=== PATIENT | female | born 1965 | race Caucasian/White ===

== ENCOUNTER 2017-07-03 14:47 | Inpatient (IN) ==
[2017-07-03 16:12] LABS: Basophils # 0.1 10*3/uL (0.0-0.2); Basophils % 1.3 % (0.0-0.8); Hematocrit 29.6 VOL% (35.7-47.0); Hemoglobin 8.3 GM/DL (12.0-16.0); Immature Granulocytes % 0.5 %; Immature Granulocytes Absolute 0.03 #; Lymphocytes % 16.4 % (21.3-54.2); Mean Corpuscular Hemoglobin 28 PG (27-34); Mean Platelet Volume 11.2 FL (9.6-12.0); Monocytes # 0.6 10*3/uL (0.11-0.8); Monocytes % 8.9 % (1.7-12.7); Neutrophils # 4.6 10*3/uL (1.4-7.4); Neutrophils % 72.9 % (38.7-73.9); Platelet Count 194 T/CUMM (130-400); Red Blood Count 3.02 MC/CUMM (3.8-5.5); Red Cell Distribution Width 20.1 % (9.3-17.3); White Blood Count 6.3 T/CUMM (4-12)
[2017-07-03 16:38] LABS: Alanine Aminotransferase 28 U/L (13-56); Albumin 3.4 G/DL (3.4-5.0); Alkaline Phosphatase 82 U/L (45-117); Aspartate Amino Transferase 28 U/L (0-37); Blood Urea Nitrogen 32 MG/DL (7-18); Calcium 8.3 MG/DL (8.5-10.1); Glucose 131 MG/DL (74-106); Osmolality,Calculated 289.3 MOS/KG (273-304); Potassium 4.8 MMOL/L (3.5-5.1); Sodium 141 MMOL/L (136-145); Total Protein 6.5 G/DL (6.4-8.3); Troponin I Only < 0.015 NG/ML (0.00-0.045)
[2017-07-03 17:32] LABS: Partial Thromboplastin Time 37.6 SECS (0-40)
[2017-07-03 17:37] LABS: INR 2.9
[2017-07-03 17:41] LABS: PT Patient Result 29.4 SECS
[2017-07-03] MEDS ORDERED: GLUCAGON 1 MG VIAL IM PRN (18:13)
[2017-07-03] MEDS ORDERED: MAGNESIUM SULF RIDER 4 GM in PREMIX 1 EACH IV PRN ×2 (18:13→19:39)
[2017-07-03] MEDS ORDERED: DEXTROSE 50% 25 GM/50 ML VIAL IV PRN (18:13)
[2017-07-03] MEDS ORDERED: POTASSIUM CHLORIDE 20 MEQ TABLET PO PRN ×2 (18:13→19:39)
[2017-07-03] MEDS ORDERED: MAGNESIUM SULF RIDER 2 GM in PREMIX 1 EACH IV PRN ×2 (18:13→19:39)
[2017-07-03] MEDS ORDERED: CARVEDILOL 3.125 MG TABLET PO STA (18:18)
[2017-07-03] MEDS ORDERED: LISINOPRIL 10 MG TABLET PO STA (18:19)
[2017-07-03] MEDS ORDERED: LISINOPRIL 10 MG TABLET ONE (18:20)
[2017-07-03] MEDS ORDERED: CARVEDILOL 3.125 MG TABLET ONE (18:24)
[2017-07-03 20:17] LABS: Basophils # 0.1 10*3/uL (0.0-0.2); Basophils % 1.2 % (0.0-0.8); Hematocrit 28.3 VOL% (35.7-47.0); Immature Granulocytes % 0.3 %; Immature Granulocytes Absolute 0.02 #; Lymphocytes # 1.2 10*3/uL (1.4-4.0); Lymphocytes % 21.4 % (21.3-54.2); Mean Corpuscular HGB Conc 28.3 GM/DL (32-36); Mean Corpuscular Hemoglobin 28 PG (27-34); Mean Corpuscular Volume 98.6 FL (87-102); Mean Platelet Volume 11.4 FL (9.6-12.0); Monocytes # 0.4 10*3/uL (0.11-0.8); Monocytes % 7.1 % (1.7-12.7); Platelet Count 188 T/CUMM (130-400); Red Blood Count 2.87 MC/CUMM (3.8-5.5); Red Cell Distribution Width 20.2 % (9.3-17.3); White Blood Count 5.8 T/CUMM (4-12)
[2017-07-03 20:25] LABS: Folate > 24.0 NG/ML (5.4-24.0); Vitamin B12 754 PG/ML (211-911)
[2017-07-03 21:22] LABS: Sedimentation Rate-Westergren 65 MM/HR (0-20)
[2017-07-03] MEDS: acetaZOLAMIDE 250 MG TABLET PO SCH (22:06)
[2017-07-03] MEDS: SUCRALFATE 1 GM TABLET PO SCH (22:06)
[2017-07-03] MEDS: CARVEDILOL 12.5 MG TABLET PO SCH (22:06)
[2017-07-03] MEDS: MULTIVITAMIN (INTRINSIC) CAPSULE PO SCH (22:06)
[2017-07-03] MEDS: glipiZIDE 10 MG TABLET PO SCH (22:06)
[2017-07-03] MEDS: INSULIN REGULAR 100 UNIT/ML SUBCUT SCH (22:09)
[2017-07-03 22:21] LABS: Anisocytosis 2+; Hypochromasia 2+; Macrocytosis 1+; Microcytosis 1+; Ovalocytes 1+; Platelet Estimate Normal; Polychromasia Few
[2017-07-03 22:22] LABS: Stomatocytes Few
[2017-07-03] MEDS ORDERED: FUROSEMIDE 40 MG/4 ML VIAL IV ONE ×2 (23:00)
[2017-07-04] MEDS ORDERED: NITROGLYCERIN 2% OINT 1 INCH/GM PACK TOP SCH
[2017-07-04] MEDS: NITROGLYCERIN 2% OINT 1 INCH/GM PACK TOP SCH ×4 (00:30→17:20)
[2017-07-04] MEDS ORDERED: CARVEDILOL 3.125 MG TABLET PO SCH ×2 (08:00)
[2017-07-04] MEDS ORDERED: FUROSEMIDE 40 MG/4 ML VIAL IV SCH (08:00)
[2017-07-04] MEDS ORDERED: LISINOPRIL 5 MG TABLET PO SCH (09:00)
[2017-07-04] MEDS ORDERED: AMIODARONE INJ 150 MG in DEXTROSE 5% 100 ML IV ONE (09:30)
[2017-07-04] MEDS ORDERED: AMIODARONE INJ 450 MG in DEXTROSE 5% 241 ML IV SCH (10:00)
[2017-07-04] MEDS: FUROSEMIDE 40 MG/4 ML VIAL IV SCH ×2 (10:13→17:03)
[2017-07-04] MEDS: INSULIN REGULAR 100 UNIT/ML SUBCUT SCH ×4 (10:20→20:39)
[2017-07-04] MEDS: ONDANSETRON 4 MG/2 ML VIAL IV PRN (11:01)
[2017-07-04] MEDS: ACETAMINOPHEN 325 MG TABLET PO PRN (11:03)
[2017-07-04] MEDS: glipiZIDE 10 MG TABLET PO SCH ×4 (12:36→20:39)
[2017-07-04] MEDS: acetaZOLAMIDE 250 MG TABLET PO SCH ×2 (12:36→20:39)
[2017-07-04] MEDS: DULoxetine 30 MG CAPSULE PO SCH (12:36)
[2017-07-04] MEDS: CARVEDILOL 12.5 MG TABLET PO SCH ×2 (12:37→17:11)
[2017-07-04] MEDS: INSULIN GLARGINE 100 UNIT/ML SUBCUT SCH (12:37)
[2017-07-04] MEDS: SUCRALFATE 1 GM TABLET PO SCH ×4 (12:37→20:39)
[2017-07-04] MEDS: LISINOPRIL 5 MG TABLET PO SCH (12:37)
[2017-07-04] MEDS: PANTOPRAZOLE 40 MG TABLET PO SCH (12:37)
[2017-07-04] MEDS: MULTIVITAMIN (INTRINSIC) CAPSULE PO SCH ×2 (12:37→20:39)
[2017-07-04] MEDS: LISINOPRIL 20 MG TABLET PO SCH (12:37)
[2017-07-04] MEDS: ATORVASTATIN 40 MG TABLET PO SCH (12:38)
[2017-07-04] MEDS ORDERED: MEPERIDINE 50 MG/1 ML VIAL IV ONE (13:59)
[2017-07-04] MEDS ORDERED: MIDAZOLAM 10 MG/2 ML VIAL IV ONE (13:59)
[2017-07-04] MEDS ORDERED: MIDAZOLAM 10 MG/2 ML VIAL ONE (14:04)
[2017-07-04] MEDS ORDERED: NALOXONE 0.4 MG/ML VIAL ONE (14:04)
[2017-07-04] MEDS ORDERED: FLUMAZENIL 0.5 MG/5 ML VIAL IV ONE (14:05)
[2017-07-04] MEDS: AMIODARONE INJ 450 MG in DEXTROSE 5% 241 ML IV SCH (17:07)
[2017-07-04] MEDS: AMIODARONE 200 MG TABLET PO SCH ×2 (17:11→20:39)
[2017-07-04] MEDS: WARFARIN 5 MG TABLET PO SCH (17:11)
[2017-07-05] MEDS: NITROGLYCERIN 2% OINT 1 INCH/GM PACK TOP SCH ×5 (00:19→23:39)
[2017-07-05] MEDS: ONDANSETRON 4 MG/2 ML VIAL IV PRN ×3 (00:20→09:59)
[2017-07-05] MEDS ORDERED: AMIODARONE INJ 450 MG in DEXTROSE 5% 241 ML IV SCH (03:00)
[2017-07-05 05:54] LABS: Basophils # 0.1 10*3/uL (0.0-0.2); Basophils % 1.1 % (0.0-0.8); Hematocrit 28.4 VOL% (35.7-47.0); Hemoglobin 8.3 GM/DL (12.0-16.0); Immature Granulocytes % 0.6 %; Immature Granulocytes Absolute 0.04 #; Lymphocytes # 0.8 10*3/uL (1.4-4.0); Lymphocytes % 11.9 % (21.3-54.2); Mean Corpuscular HGB Conc 29.2 GM/DL (32-36); Mean Corpuscular Hemoglobin 28 PG (27-34); Mean Corpuscular Volume 94.4 FL (87-102); Mean Platelet Volume 10.6 FL (9.6-12.0); Monocytes # 0.6 10*3/uL (0.11-0.8); Monocytes % 8.8 % (1.7-12.7); Neutrophils # 4.9 10*3/uL (1.4-7.4); Neutrophils % 77.6 % (38.7-73.9); Platelet Count 174 T/CUMM (130-400); Red Blood Count 3.01 MC/CUMM (3.8-5.5); White Blood Count 6.4 T/CUMM (4-12)
[2017-07-05 06:30] LABS: Calcium 8.4 MG/DL (8.5-10.1); Osmolality,Calculated 295.4 MOS/KG (273-304); Potassium 4.2 MMOL/L (3.5-5.1)
[2017-07-05 08:10] LABS: Hemoglobin A1 (Alkaline) 97.9 % (96.5-98.5); Hemoglobin A2 (Alkaline) 2.1 % (1.5-3.5)
[2017-07-05] MEDS: FUROSEMIDE 40 MG/4 ML VIAL IV SCH ×2 (09:58→18:17)
[2017-07-05] MEDS: INSULIN REGULAR 100 UNIT/ML SUBCUT SCH ×5 (15:11→21:32)
[2017-07-05] MEDS: PROMETHAZINE 25 MG/1 ML VIAL IM PRN ×2 (15:16→21:32)
[2017-07-05] MEDS: AMIODARONE INJ 450 MG in DEXTROSE 5% 241 ML IV SCH ×2 (15:25→23:13)
[2017-07-05] MEDS: MULTIVITAMIN (INTRINSIC) CAPSULE PO SCH ×2 (15:25→21:33)
[2017-07-05] MEDS: LISINOPRIL 20 MG TABLET PO SCH (15:26)
[2017-07-05] MEDS: LISINOPRIL 5 MG TABLET PO SCH (15:26)
[2017-07-05] MEDS: ATORVASTATIN 40 MG TABLET PO SCH (15:26)
[2017-07-05] MEDS: PANTOPRAZOLE 40 MG TABLET PO SCH (15:26)
[2017-07-05] MEDS: INSULIN GLARGINE 100 UNIT/ML SUBCUT SCH (15:26)
[2017-07-05] MEDS: DULoxetine 30 MG CAPSULE PO SCH (15:27)
[2017-07-05] MEDS: acetaZOLAMIDE 250 MG TABLET PO SCH ×2 (15:27→21:33)
[2017-07-05] MEDS: glipiZIDE 10 MG TABLET PO SCH ×3 (15:27→21:33)
[2017-07-05] MEDS: AMIODARONE 200 MG TABLET PO SCH ×2 (15:27→21:33)
[2017-07-05] MEDS: CARVEDILOL 12.5 MG TABLET PO SCH ×2 (15:28→17:52)
[2017-07-05] MEDS: SUCRALFATE 1 GM TABLET PO SCH ×3 (15:28→21:34)
[2017-07-05] MEDS: WARFARIN 5 MG TABLET PO SCH (17:52)
[2017-07-05] MEDS: ACETAMINOPHEN 325 MG TABLET PO PRN (23:38)
[2017-07-06 02:48] LABS: Basophils # 0.1 10*3/uL (0.0-0.2); Basophils % 1.4 % (0.0-0.8); Hematocrit 29.2 VOL% (35.7-47.0); Hemoglobin 8.5 GM/DL (12.0-16.0); Immature Granulocytes % 0.6 %; Immature Granulocytes Absolute 0.05 #; Lymphocytes # 1.4 10*3/uL (1.4-4.0); Lymphocytes % 17.6 % (21.3-54.2); Mean Corpuscular HGB Conc 29.1 GM/DL (32-36); Mean Corpuscular Hemoglobin 27 PG (27-34); Mean Corpuscular Volume 94.2 FL (87-102); Mean Platelet Volume 11.5 FL (9.6-12.0); Monocytes # 0.9 10*3/uL (0.11-0.8); NRBC # 0.02 10*3/uL; Neutrophils # 5.6 10*3/uL (1.4-7.4); Neutrophils % 69.4 % (38.7-73.9); Platelet Count 183 T/CUMM (130-400); Red Cell Distribution Width 19.7 % (9.3-17.3); White Blood Count 8.1 T/CUMM (4-12)
[2017-07-06 03:01] LABS: INR 2.4
[2017-07-06 03:04] LABS: Calcium 8.8 MG/DL (8.5-10.1); Osmolality,Calculated 287.4 MOS/KG (273-304); PT Patient Result 24.6 SECS; Potassium 3.8 MMOL/L (3.5-5.1)
[2017-07-06] MEDS: NITROGLYCERIN 2% OINT 1 INCH/GM PACK TOP SCH ×3 (05:57→23:48)
[2017-07-06] MEDS: LISINOPRIL 20 MG TABLET PO SCH (09:04)
[2017-07-06] MEDS: acetaZOLAMIDE 250 MG TABLET PO SCH ×2 (09:04→20:27)
[2017-07-06] MEDS: CARVEDILOL 12.5 MG TABLET PO SCH ×2 (09:05→18:10)
[2017-07-06] MEDS: SUCRALFATE 1 GM TABLET PO SCH ×4 (09:05→20:27)
[2017-07-06] MEDS: ATORVASTATIN 40 MG TABLET PO SCH (09:05)
[2017-07-06] MEDS: INSULIN REGULAR 100 UNIT/ML SUBCUT SCH ×4 (09:05→20:26)
[2017-07-06] MEDS: DULoxetine 30 MG CAPSULE PO SCH (09:05)
[2017-07-06] MEDS: INSULIN GLARGINE 100 UNIT/ML SUBCUT SCH (09:05)
[2017-07-06] MEDS: AMIODARONE 200 MG TABLET PO SCH ×3 (09:05→20:26)
[2017-07-06] MEDS: MULTIVITAMIN (INTRINSIC) CAPSULE PO SCH ×2 (09:05→20:27)
[2017-07-06] MEDS: glipiZIDE 10 MG TABLET PO SCH ×4 (09:05→20:26)
[2017-07-06] MEDS: PANTOPRAZOLE 40 MG TABLET PO SCH (09:05)
[2017-07-06] MEDS: FUROSEMIDE 40 MG/4 ML VIAL IV SCH ×2 (09:06→15:24)
[2017-07-06] MEDS: LISINOPRIL 5 MG TABLET PO SCH (09:08)
[2017-07-06] MEDS: ACETAMINOPHEN 325 MG TABLET PO PRN ×2 (09:15→20:33)
[2017-07-06] MEDS: AMIODARONE INJ 450 MG in DEXTROSE 5% 241 ML IV SCH (13:05)
[2017-07-06] MEDS ORDERED: MAGNESIUM HYDROXIDE SUSP 30 ML UDCUP PO PRN (13:48)
[2017-07-06] MEDS: WARFARIN 5 MG TABLET PO SCH (18:05)
[2017-07-07] MEDS: AMIODARONE INJ 450 MG in DEXTROSE 5% 241 ML IV SCH (04:02)
[2017-07-07 04:38] LABS: Basophils # 0.1 10*3/uL (0.0-0.2); Basophils % 1.3 % (0.0-0.8); Hematocrit 29.1 VOL% (35.7-47.0); Hemoglobin 8.7 GM/DL (12.0-16.0); Immature Granulocytes % 0.5 %; Immature Granulocytes Absolute 0.03 #; Lymphocytes # 1.5 10*3/uL (1.4-4.0); Lymphocytes % 24.7 % (21.3-54.2); Mean Corpuscular HGB Conc 29.9 GM/DL (32-36); Mean Corpuscular Hemoglobin 28 PG (27-34); Mean Corpuscular Volume 93.9 FL (87-102); Mean Platelet Volume 11.5 FL (9.6-12.0); Monocytes # 0.6 10*3/uL (0.11-0.8); Monocytes % 10.7 % (1.7-12.7); Neutrophils # 3.7 10*3/uL (1.4-7.4); Neutrophils % 62.8 % (38.7-73.9); Platelet Count 185 T/CUMM (130-400); Red Cell Distribution Width 19.8 % (9.3-17.3)
[2017-07-07 04:55] LABS: PT Patient Result 20.7 SECS
[2017-07-07 05:06] LABS: Calcium 8.8 MG/DL (8.5-10.1); Osmolality,Calculated 286.1 MOS/KG (273-304); Potassium 3.4 MMOL/L (3.5-5.1)
[2017-07-07] MEDS: NITROGLYCERIN 2% OINT 1 INCH/GM PACK TOP SCH ×4 (05:13→23:24)
[2017-07-07] MEDS: INSULIN REGULAR 100 UNIT/ML SUBCUT SCH ×4 (09:05→21:22)
[2017-07-07] MEDS: INSULIN GLARGINE 100 UNIT/ML SUBCUT SCH (09:05)
[2017-07-07] MEDS: FUROSEMIDE 40 MG/4 ML VIAL IV SCH ×2 (09:05→15:18)
[2017-07-07] MEDS: LISINOPRIL 20 MG TABLET PO SCH (09:05)
[2017-07-07] MEDS: AMIODARONE 200 MG TABLET PO SCH ×2 (09:06→21:22)
[2017-07-07] MEDS: glipiZIDE 10 MG TABLET PO SCH ×4 (09:06→21:22)
[2017-07-07] MEDS: ATORVASTATIN 40 MG TABLET PO SCH (09:06)
[2017-07-07] MEDS: acetaZOLAMIDE 250 MG TABLET PO SCH ×2 (09:06→21:22)
[2017-07-07] MEDS: CARVEDILOL 12.5 MG TABLET PO SCH ×2 (09:06→17:15)
[2017-07-07] MEDS: SUCRALFATE 1 GM TABLET PO SCH ×4 (09:06→21:22)
[2017-07-07] MEDS: PANTOPRAZOLE 40 MG TABLET PO SCH (09:06)
[2017-07-07] MEDS: MULTIVITAMIN (INTRINSIC) CAPSULE PO SCH ×2 (09:06→21:22)
[2017-07-07] MEDS: DULoxetine 30 MG CAPSULE PO SCH (09:06)
[2017-07-07] MEDS: LISINOPRIL 5 MG TABLET PO SCH (09:08)
[2017-07-07] MEDS: WARFARIN 5 MG TABLET PO SCH (17:15)
[2017-07-07] MEDS: ACETAMINOPHEN 325 MG TABLET PO PRN (21:26)
[2017-07-08] MEDS: ONDANSETRON 4 MG/2 ML VIAL IV PRN (04:20)
[2017-07-08 04:51] LABS: INR 1.9; PT Patient Result 19.3 SECS
[2017-07-08] MEDS: INSULIN REGULAR 100 UNIT/ML SUBCUT SCH ×2 (10:02→12:05)
[2017-07-08] MEDS: INSULIN GLARGINE 100 UNIT/ML SUBCUT SCH (10:03)
[2017-07-08] MEDS: LISINOPRIL 20 MG TABLET PO SCH (10:05)
[2017-07-08] MEDS: acetaZOLAMIDE 250 MG TABLET PO SCH (10:06)
[2017-07-08] MEDS: MULTIVITAMIN (INTRINSIC) CAPSULE PO SCH (10:06)
[2017-07-08] MEDS: SUCRALFATE 1 GM TABLET PO SCH ×2 (10:09→13:44)
[2017-07-08] MEDS: DULoxetine 30 MG CAPSULE PO SCH (10:09)
[2017-07-08] MEDS: PANTOPRAZOLE 40 MG TABLET PO SCH (10:10)
[2017-07-08] MEDS: glipiZIDE 10 MG TABLET PO SCH ×2 (10:10→13:44)
[2017-07-08] MEDS: ATORVASTATIN 40 MG TABLET PO SCH (10:10)
[2017-07-08] MEDS: AMIODARONE 200 MG TABLET PO SCH (10:11)
[2017-07-08] MEDS: CARVEDILOL 12.5 MG TABLET PO SCH (10:11)
[2017-07-08] MEDS: LISINOPRIL 5 MG TABLET PO SCH (10:14)
[2017-07-08] MEDS: FUROSEMIDE 40 MG/4 ML VIAL IV SCH (10:14)
[2017-07-08 10:38] LABS: Basophils # 0.1 10*3/uL (0.0-0.2); Basophils % 1.2 % (0.0-0.8); Hematocrit 30.6 VOL% (35.7-47.0); Immature Granulocytes % 0.4 %; Immature Granulocytes Absolute 0.02 #; Lymphocytes # 0.8 10*3/uL (1.4-4.0); Lymphocytes % 15.6 % (21.3-54.2); Mean Corpuscular HGB Conc 29.4 GM/DL (32-36); Mean Corpuscular Hemoglobin 28 PG (27-34); Mean Platelet Volume 11.6 FL (9.6-12.0); Monocytes # 0.6 10*3/uL (0.11-0.8); Monocytes % 11.3 % (1.7-12.7); Neutrophils # 3.7 10*3/uL (1.4-7.4); Neutrophils % 71.5 % (38.7-73.9); Platelet Count 183 T/CUMM (130-400); Red Blood Count 3.22 MC/CUMM (3.8-5.5); Red Cell Distribution Width 19.9 % (9.3-17.3); White Blood Count 5.2 T/CUMM (4-12)
[2017-07-08 11:16] LABS: Calcium 8.3 MG/DL (8.5-10.1); Osmolality,Calculated 293.4 MOS/KG (273-304); Potassium 3.6 MMOL/L (3.5-5.1)
[2017-07-08 12:43] VITALS: BP 140/63
[2017-07-08] MEDS: NITROGLYCERIN 2% OINT 1 INCH/GM PACK TOP SCH (13:43)
== END 2017-07-08 15:27 | disposition home or self-care (01) | DRG 291 ==
LOC: N.ED 14:47 → SUATTDRO 18:01 → N.EDINP 18:01 → N.ED 19:10 → N.TELES 19:55
PROVIDERS: ADMIT Internal Medicine; ATTEND Internal Medicine